=== PATIENT | female | born 1960 | race Caucasian/White ===

== ENCOUNTER 2023-08-13 04:59 | Emergency (ER) | payer MEDICARE, SELFPAY ==
[2023-08-13] VITALS (8 sets, daily range): BP systolic 118–133; BP diastolic 57–67; PULSE 82–91; RESP 18–21; TEMP 36.6; O2SAT 91–96; BMI 34.4
--- NOTE | 2023-08-13 05:07 | ED.ABDPAIN ---
HPI - Abdominal Pain <Angie Islas DO - Last Filed: 08/14/23 05:20> General Chief Complaint: Shortness of Breath/Dyspnea Stated Complaint: right side pain x1 week Time Seen by Provider: 08/13/23 05:06 Source: patient, RN notes reviewed and old records reviewed Mode of arrival: Ambulatory Limitations: no limitations History of Present Illness HPI narrative: This is a 63-year-old female with history of bipolar, hypertension who presents with complaint of right sided chest and upper abdominal pain for the past week. Patient states she saw her primary care was given meloxicam it has not been helpful. It is worse with cough, movement a deep inhalation. Patient states no fevers, no chills, no cold cough or congestive symptoms. Patient states pain is also little bit of the upper abdomen did id rubs or rashes back. Patient states no nausea or vomiting. No diaphoresis. She is normal bowel movements with no black or bloody stools. No dysuria, urgency or frequency. Patient has had a prior cholecystectomy as well as appendectomy. No prior cardiac interventions. She presents this morning as her symptoms have continued to worsen and not improve. She states pain is pretty much always present and has never resolved. Allergies to codeine, lithium and adhesive tape. Patient quit smoking 2 years ago, has 2 alcoholic shots several times weekly, no recreational or IV drugs. Related Data Previous Rx's Medication Instructions Recorded cefdinir 300 mg capsule 300 mg PO BID 5 days #10 caps 08/13/23 doxycycline hyclate 100 mg capsule 100 mg PO BID 5 days #10 caps 08/13/23 Allergies Allergy/AdvReac Type Severity Reaction Status Date / Time adhesive tape Allergy Intermediate Hives Verified 08/13/23 05:10 codeine Allergy Intermediate ITCHING Verified 08/13/23 05:09 lithium Allergy Intermediate Anxiety Verified 08/13/23 05:10 Review of Systems <Angie Islas DO - Last Filed: 08/14/23 05:20> Review of Systems ROS Unobtainable: All systems reviewed & are unremarkable except as noted in HPI and below Patient History <Angie Islas DO - Last Filed: 08/14/23 05:20> Social History Smoking Status: Former smoker Exam <Angie Islas DO - Last Filed: 08/14/23 05:20> Narrative Exam Narrative: GENERAL: Alert and oriented x three, obese female in mild distress. HEENT: Head normocephalic, atraumatic, EOMI, pupils reactive, face symmetric, moist mucous membranes NECK: Supple, full range of motion CARDIOVASCULAR: Regular rate and rhythm without murmurs, rubs or gallops. RESPIRATORY: Breath sounds equal bilaterally, no wheezes rales or rhonchi. No tachypnea, no accessory muscle use. No rash, erythema or other skin changes. ABDOMEN: Soft, moderate right upper quadrant tenderness. Normoactive bowel sounds all 4 quadrants. No guarding or rebound, rigidity, no mass : No CVA tenderness EXTREMITIES: Normal range of motion, no clubbing or edema. Neurovascularly intact NEUROLOGICAL: Cranial nerves II through XII grossly intact. Moving all extremities SKIN: Warm, dry, no petechiae, no rashes or lesions. Initial Vital Signs Initial Vital Signs: Vital Signs Temperature 97.9 F 08/13/23 05:11 Pulse Rate 90 08/13/23 05:11 Respiratory Rate 18 08/13/23 05:11 Blood Pressure 133/61 08/13/23 05:11 Pulse Oximetry 96 08/13/23 05:11 Oxygen Delivery Method Room Air 08/13/23 05:11 <Damian Schaffer MD - Last Filed: 08/13/23 07:52> Initial Vital Signs Initial Vital Signs: Vital Signs Temperature 97.9 F 08/13/23 05:11 Pulse Rate 90 08/13/23 05:11 Respiratory Rate 18 08/13/23 05:11 Blood Pressure 133/61 08/13/23 05:11 Pulse Oximetry 96 08/13/23 05:11 Oxygen Delivery Method Room Air 08/13/23 05:11 Course <Agnie Islas DO - Last Filed: 08/14/23 05:20> Orders Ordered: Discontinued Medications Cefdinir (Cefdinir 300 Mg Capsule) 300 mg PO NOW ONE Stop: 08/13/23 07:11 Last Admin: 08/13/23 07:24 Dose: 300 mg Documented By: GABBY Doxycycline Hyclate (Doxycycline Hyclate 100 Mg Tablet) 100 mg PO NOW ONE Stop: 08/13/23 07:11 Last Admin: 08/13/23 07:23 Dose: 100 mg Documented By: GABBY Ketorolac Tromethamine (Ketorolac 30 Mg/Ml Vial) 15 mg IV NOW ONE Stop: 08/13/23 05:23 Last Admin: 08/13/23 05:37 Dose: 15 mg Documented By: AB Vital Signs Vital signs: Vital Signs - 8 hr 08/13/23 05:11 08/13/23 05:33 08/13/23 06:00 Temperature 97.9 F Pulse Rate 90 89 86 Respiratory Rate 18 21 Blood Pressure 133/61 Pulse Oximetry 96 95 93 Oxygen Delivery Method Room Air Room Air 08/13/23 06:00 08/13/23 06:49 08/13/23 07:00 Temperature Pulse Rate 91 H 84 Respiratory Rate Blood Pressure 126/58 L Pulse Oximetry 91 95 Oxygen Delivery Method 08/13/23 07:30 08/13/23 07:43 08/13/23 07:43 Temperature Pulse Rate 85 82 Respiratory Rate Blood Pressure 118/57 L Pulse Oximetry 94 Oxygen Delivery Method 08/13/23 07:45 Temperature Pulse Rate Respiratory Rate Blood Pressure 118/67 Pulse Oximetry Oxygen Delivery Method <Damian Schaffer MD - Last Filed: 08/13/23 07:52> Orders Ordered: Discontinued Medications Cefdinir (Cefdinir 300 Mg Capsule) 300 mg PO NOW ONE Stop: 08/13/23 07:11 Last Admin: 08/13/23 07:24 Dose: 300 mg Documented By: GABBY Doxycycline Hyclate (Doxycycline Hyclate 100 Mg Tablet) 100 mg PO NOW ONE Stop: 08/13/23 07:11 Last Admin: 08/13/23 07:23 Dose: 100 mg Documented By: GABBY Ketorolac Tromethamine (Ketorolac 30 Mg/Ml Vial) 15 mg IV NOW ONE Stop: 08/13/23 05:23 Last Admin: 08/13/23 05:37 Dose: 15 mg Documented By: Vital Signs Vital signs: Vital Signs - 8 hr 08/13/23 05:11 08/13/23 05:33 08/13/23 06:00 Temperature 97.9 F Pulse Rate 90 89 86 Respiratory Rate 18 21 Blood Pressure 133/61 Pulse Oximetry 96 95 93 Oxygen Delivery Method Room Air Room Air 08/13/23 06:00 08/13/23 06:49 08/13/23 07:00 Temperature Pulse Rate 91 H 84 Respiratory Rate Blood Pressure 126/58 L Pulse Oximetry 91 95 Oxygen Delivery Method 08/13/23 07:30 08/13/23 07:43 08/13/23 07:43 Temperature Pulse Rate 85 82 Respiratory Rate Blood Pressure 118/57 L Pulse Oximetry 94 Oxygen Delivery Method 08/13/23 07:45 Temperature Pulse Rate Respiratory Rate Blood Pressure 118/67 Pulse Oximetry Oxygen Delivery Method MDM - Abdominal Pain <Angie Islas, - Last Filed: 08/14/23 05:20> Lab Data 08/13/23 05:25 08/13/23 05:25 Labs: Lab Results 08/13/23 08/13/23 Range/Units 05:10 05:25 WBC 10.4 (4.5-11.0) X10^3/uL RBC 3.96 L (4.0-5.2) X10^6/uL Hgb 11.7 L (12.0-16.0) g/dL Hct 34.8 L (36-46) % MCV 87.9 (80-100) fL MCH 29.4 (26-34) PG MCHC 33.5 (30-36) % RDW 14.4 (11.6-14.8) % Plt Count 369 (150-400) X10^3/uL Neut % (Auto) 64.8 (50-75) % Lymph % (Auto) 24.4 L (25-40) % [place] % (Auto) 7.8 (3-14) % Eos % (Auto) 2.5 (2-4) % Baso % (Auto) 0.5 (0-2) % Neut # (Auto) 6700 (1816-5383) /uL Lymph # (Auto) 2500 (6322-8455) /uL [place] # (Auto) 800 (0-900) /uL Eos # (Auto) 300 (0-450) /uL Baso # (Auto) 100 (0-100) /uL PT 11.3 (9.4-12.5) SECONDS INR 1.0 (0.9-1.3) APTT 42 H (25.1-36.5) SECONDS D-Dimer 2035 H (<500) ng/ml Sodium 134 L (137-145) mmol/L Potassium 4.5 (3.4-5.1) mmol/L Chloride 103 (98-107) mmol/L Carbon Dioxide 22 (22-32) mmol/L BUN 26 H (7-17) mg/dL Creatinine 0.76 (0.52-1.04) mg/dL Estimated GFR > 60 (>60) mL/min BUN/Creatinine Ratio 34.2 H (6-22) Glucose 216 H (80-110) mg/dL Calcium 9.5 (8.4-10.2) mg/dL Total Bilirubin 0.7 (0.2-1.3) mg/dL AST 58 H (14-36) IU/L ALT 47 H (<35) IU/L Alkaline Phosphatase 266 H (38-126) U/L Total Creatine Kinase 54 (30-135) U/L Troponin I < 0.012 (0.01-0.034) ng/mL Total Protein 9.0 H (6.3-8.2) g/dL Albumin 4.3 (3.5-5.0) g/dL Globulin 4.7 H (1.7-4.1) g/dL Albumin/Globulin Ratio 0.9 L (1.0-2.8) Lipase 120 (23-300) U/L Urine RBC 0-1/hpf (0-5/HPF) Urine WBC 30-100/hpf H (0-5/HPF) Ur Squamous Epith Cells 0-1 /hpf (0-5/HPF) Urine Bacteria Many (>30) H (None) Ur Culture Indicated? Specimen cultured Vol Urine Centrifuged 10ml (spun) Point of care testing: Urine Dip Bedside Urine Glucose 500 mg/dl Bedside Urine Bilirubin - Negative Bedside Urine Ketone - Negative Urine Specific Roberta 1.01 Bedside Urine Occult Blood - Negative Bedside Urine pH 6 Bedside Urine Protein - Negative Bedside Urine Urobilinogen - Negative Bedside Urine Nitrite - Negative Bedside Urine Leukocytes + 70 Esterase Imaging Data Chest x-ray: Radiologist's Impression: No acute change. ECG Data Attestation: I personally reviewed and interpreted this ECG as follows: Prior ECG tracings: not available for review Interpretation: NSR, rate of 87, pr 198, qrs 86, qtc 445. No acute ST elevation or depression. No priors for comparison. MDM Narrative Medical decision making narrative: 63-year-old female with complaint of right-sided chest and upper abdominal pain for the past week. Describes it as worse with movement, pleuritic with no infectious symptoms, there has only been right-sided. Does have some tenderness of the right upper quadrant but no longer has a gallbladder or appendix. Skin is normal without any signs such as shingles. Labs, white count of 10.4 hemoglobin 11.7, platelets of 369. INR is 1, D-dimer is 2035, sodium of 134 BUN 26 with otherwise normal electrolytes creatinine 0.76. Glucose of 216. Bilirubin 0.7. Lipase is negative with a total bili of 0.7 AST of 58 ALT of 47 alk-phos of 266. Negative troponin. Chest x-ray no acute change. EKG EKG shows possible old septal infarct but no acute ST elevation or depression. No priors for comparison. Vitals no overall appropriate no tachycardia, no hypotension, afebrile going to 95-96% room air. Reviewed findings with patient. Plan for CT angio. Patient is agreeable to the plan. Patient has right-sided pleuritic chest pain with the elevated D-dimer, negative troponin, no acute ST elevation depression on EKG. No estrogen, denies long distance travel, flights or sitting. No prior embolic history. CT angio was obtained. <Damian Schaffer MD - Last Filed: 08/13/23 07:52> Lab Data Labs: Lab Results 08/13/23 08/13/23 Range/Units 05:10 05:25 WBC 10.4 (4.5-11.0) X10^3/uL RBC 3.96 L (4.0-5.2) X10^6/uL Hgb 11.7 L (12.0-16.0) g/dL Hct 34.8 L (36-46) % MCV 87.9 (80-100) fL MCH 29.4 (26-34) PG MCHC 33.5 (30-36) % RDW 14.4 (11.6-14.8) % Plt Count 369 (150-400) X10^3/uL Neut % (Auto) 64.8 (50-75) % Lymph % (Auto) 24.4 L (25-40) % [place] % (Auto) 7.8 (3-14) % Eos % (Auto) 2.5 (2-4) % Baso % (Auto) 0.5 (0-2) % Neut # (Auto) 6700 (8056-6606) /uL Lymph # (Auto) 2500 (9296-7321) /uL [place] # (Auto) 800 (0-900) /uL Eos # (Auto) 300 (0-450) /uL Baso # (Auto) 100 (0-100) /uL PT 11.3 (9.4-12.5) SECONDS INR 1.0 (0.9-1.3) APTT 42 H (25.1-36.5) SECONDS D-Dimer 2035 H (<500) ng/ml Sodium 134 L (137-145) mmol/L Potassium 4.5 (3.4-5.1) mmol/L Chloride 103 (98-107) mmol/L Carbon Dioxide 22 (22-32) mmol/L BUN 26 H (7-17) mg/dL Creatinine 0.76 (0.52-1.04) mg/dL Estimated GFR > 60 (>60) mL/min BUN/Creatinine Ratio 34.2 H (6-22) Glucose 216 H (80-110) mg/dL Calcium 9.5 (8.4-10.2) mg/dL Total Bilirubin 0.7 (0.2-1.3) mg/dL AST 58 H (14-36) IU/L ALT 47 H (<35) IU/L Alkaline Phosphatase 266 H (38-126) U/L Total Creatine Kinase 54 (30-135) U/L Troponin I < 0.012 (0.01-0.034) ng/mL Total Protein 9.0 H (6.3-8.2) g/dL Albumin 4.3 (3.5-5.0) g/dL Globulin 4.7 H (1.7-4.1) g/dL Albumin/Globulin Ratio 0.9 L (1.0-2.8) Lipase 120 (23-300) U/L Urine RBC 0-1/hpf (0-5/HPF) Urine WBC 30-100/hpf H (0-5/HPF) Ur Squamous Epith Cells 0-1 /hpf (0-5/HPF) Urine Bacteria Many (>30) H (None) Ur Culture Indicated? Specimen cultured Vol Urine Centrifuged 10ml (spun) Point of care testing: Urine Dip Bedside Urine Glucose 500 mg/dl Bedside Urine Bilirubin - Negative Bedside Urine Ketone - Negative Urine Specific Roberta 1.01 Bedside Urine Occult Blood - Negative Bedside Urine pH 6 Bedside Urine Protein - Negative Bedside Urine Urobilinogen - Negative Bedside Urine Nitrite - Negative Bedside Urine Leukocytes + 70 Esterase MDM Narrative Medical decision making narrative: 63-year-old female with complaint of right-sided chest and upper abdominal pain for the past week. Describes it as worse with movement, pleuritic with no infectious symptoms, there has only been right-sided. Does have some tenderness of the right upper quadrant but no longer has a gallbladder or appendix. Skin is normal without any signs such as shingles. Labs, white count of 10.4 hemoglobin 11.7, platelets of 369. INR is 1, D-dimer is 2035, sodium of 134 BUN 26 with otherwise normal electrolytes creatinine 0.76. Glucose of 216. Bilirubin 0.7. Lipase is negative with a total bili of 0.7 AST of 58 ALT of 47 alk-phos of 266. Negative troponin. Chest x-ray no acute change. EKG EKG shows possible old septal infarct but no acute ST elevation or depression. No priors for comparison. Vitals no overall appropriate no tachycardia, no hypotension, afebrile going to 95-96% room air. Reviewed findings with patient. Plan for CT angio. Patient is agreeable to the plan. Patient has right-sided pleuritic chest pain with the elevated D-dimer, negative troponin, no acute ST elevation depression on EKG. No estrogen, denies long distance travel, flights or sitting. No prior embolic history. CT angio was obtained. ---- Sign out at 7AM. This is a 63yo F w/h/o HTN, DM, bipolar disorder who presented with 1 week of chest/upper abd pain, pleuritic, without SOB. She has had cholecystectomy. EKG non ischemic. CXR clear. Trop/labs reassuring but d-dimer elevated. CTA obtained and pending. VS reassuring. PLAN: follow up CT read, if reassuring then discharge with follow up. Low concern for ACS. CT results returned. While it is not clear there is pneumonia, given some potential concern for this I am initiating 5 day course of dual antibiotics with cefdinir 300 mg p.o. b.i.d. and doxycycline 100 mg p.o. b.i.d.. In addition, I am giving copy of CT results with very important incidental findings for patient to follow up on. Note CT findings likely explain elevated D-dimer. I reassessed patient who states she is feeling well. She has reassuring repeat exam and vital signs. We discussed dual antibiotic coverage, with prescriptions given. She has no other new concerns and understands plan. We fully discussed the CT results and strict importance of follow up on this. Repeat exam and vital signs reassuring. Questions answered. Plan reviewed. Patient discharged in stable condition. Discharge Plan Departure Patient Disposition: Home Clinical Impression: Shortness of Breath Instructions: DI for Cough -- Adult Activity Restrictions/Additional Instructions: It was a pleasure taking care of you today. It is important to fully read and understand the below. Please ask us if you have any questions. We think the most likely cause of your symptoms is pneumonia. However, as discussed, there are extremely important findings on your CT scan that need very close follow-up. Please see your primary doctor within 3-5 days to be reassessed. Please take cefdinir and doxycycline as prescribed. You also have mild anemia, elevated liver enzymes. You have bacteria in your urine, which would also be treated likely with the antibiotics I am giving you, though we do not typically treat without clear urinary symptoms. No tests or assessments are perfect, and your condition could record changer assembler time. If your symptoms change or worsen, it is very important you immediately seek medical care. If you have any new or worsening pain, lightheadedness or passing out, shortness of breath, fever, vomiting, confusion, numbness, weakness, or anything else that concerns you, please immediately seek medical care. If you have been prescribed any medications: please read the drug package inserts on how to properly use the medication and any potential side effects. If you had labs (blood tests) or imaging (CT scan or x-rays) done during your visit: please follow up on the results of these with your primary care doctor, as discussed. In addition, please know the results we received today may be preliminary. Our usual practice is to follow up on tests within a few days of a patient's discharge from the Emergency Department and notify you of any changes. These may lead to changes to your treatment plan. However, the best way to obtain and interpret these test results is through your Primary Care Provider. If you need to update your contact information, please stop by the front line supervisor and alert the Registration personnel before you leave the Emergency Department. Thank you for the opportunity to participate in your healthcare. We are always here and happy to see you in the future. Prescriptions: New cefdinir 300 mg capsule 300 mg PO BID 5 Days Qty: 10 0RF doxycycline hyclate 100 mg capsule 100 mg PO BID 5 Days Qty: 10 0RF Stand Alone Forms: Patient Portal/API
--- NOTE | 2023-08-13 05:22 | DI.RAD.S_ITS ---
PROCEDURE: XR CHEST 1V INDICATIONS: chest pain TECHNIQUE: One view of the chest was acquired. COMPARISON: None. FINDINGS: Surgical changes and devices: None. Lungs and pleura: Minimal basilar atelectasis and or infiltrate Mediastinum: Mediastinal contours appear normal. Heart size is normal. Bones and chest wall: No suspicious bony lesions. Overlying soft tissues appear unremarkable. IMPRESSION: Minimal bibasilar scattered atelectasis and or infiltrate Approved by: Wallace Hyman M.D. on 08/13/2023 at 8:35
[2023-08-13 05:35] LABS: Add Manual Diff / Slide Review NO; Basophils Absolute Auto 100 /uL (0-100); Basophils Percent Auto 0.5 % (0-2); Eosinophils Absolute Auto 300 /uL (0-450); Eosinophils Percent Auto 2.5 % (2-4); Hematocrit 34.8 % (36-46); Hemoglobin 11.7 g/dL (12.0-16.0); Lymphocytes Absolute Auto 2500 /uL (1100-4500); Lymphocytes Percent Auto 24.4 % (25-40); Mean Corpuscular HGB Conc 33.5 % (30-36); Mean Corpuscular Hemoglobin 29.4 PG (26-34); Mean Corpuscular Volume 87.9 fL (80-100); Monocytes Absolute Auto 800 /uL (0-900); Monocytes Percent Auto 7.8 % (3-14); Neutrophils Absolute Auto 6700 /uL (1500-7000); Neutrophils Percent Auto 64.8 % (50-75); Platelet Count 369 X10^3/uL (150-400); Red Blood Cell Count 3.96 X10^6/uL (4.0-5.2); Red Cell Distribution Width 14.4 % (11.6-14.8); White Blood Cell Count 10.4 X10^3/uL (4.5-11.0)
[2023-08-13] MEDS: KETOROLAC 30 MG/ML VIAL 15 MG IV (05:37)
[2023-08-13 05:44] LABS: Prothrombin Time 11.3 SECONDS (9.4-12.5)
[2023-08-13 05:45] LABS: D Dimer 2035 ng/ml (<500)
[2023-08-13 05:46] LABS: Bacteria Urine Many (>30); Culture Indicated Urine Specimen Cultured; RBC Urine 0-1/HPF (0-5/HPF); Squamous Epithelial Cell Urine 0-1 /HPF (0-5/HPF); Urine Volume 10mL (spun); WBC Urine 30-100/HPF (0-5/HPF)
[2023-08-13 05:46] LABS: PTT Partial Thromboplastin Tim 42 SECONDS (25.1-36.5)
[2023-08-13 05:47] LABS: Alanine Aminotransferase 47 IU/L (<35); Albumin 4.3 g/dL (3.5-5.0); Albumin Globulin Ratio 0.9 (1.0-2.8); Alkaline Phosphatase 266 U/L (38-126); Aspartate Aminotransferase 58 IU/L (14-36); BUN Creatinine Ratio 34.2 (6-22); Bilirubin Total 0.7 mg/dL (0.2-1.3); Blood Urea Nitrogen 26 mg/dL (7-17); Calcium 9.5 mg/dL (8.4-10.2); Carbon Dioxide 22 mmol/L (22-32); Chloride 103 mmol/L (98-107); Creatine Kinase 54 U/L (30-135); Estimated Glomerular Filt Rate > 60 mL/min (>60); Globulin 4.7 g/dL (1.7-4.1); Glucose 216 mg/dL (80-110); HEMOLYSIS < 15 (0-50); Lipase 120 U/L (23-300); Potassium 4.5 mmol/L (3.4-5.1); Sodium 134 mmol/L (137-145)
[2023-08-13 05:59] LABS: Troponin I < 0.012 ng/mL (0.01-0.034)
--- NOTE | 2023-08-13 06:01 | DI.CT.S_ITS ---
PROCEDURE: CT ANGIO CHEST PE PROTOCOL INDICATIONS: right chest pain/abd pain, pleuritic, +dimer TECHNIQUE: After the administration of intravenous contrast, 2 mm thick sections acquired from the pulmonary apices to the posterior costophrenic angles. MIP reformats of the arterial vasculature were utilized. For radiation dose reduction, the following was used: automated exposure control, adjustment of mA and/or kV according to patient size. COMPARISON: None. FINDINGS: Image quality: Study is limited by bolus timing Cardiovascular and Mediastinum: Heart size is normal. No evidence of thoracic aortic aneurysm. Pulmonary vasculature is unremarkable. No hiatal hernia. Thyroid gland unremarkable. Lungs and Pleural Spaces: Small right pleural effusion rounded and atelectasis and or consolidation in the costophrenic sulcus measuring 3 cm. Right middle lobe scarring present. Left lung and pleural space clear Lymph Nodes: No mediastinal, hilar or axillary adenopathy. Scattered mediastinal nodes are nonenlarged. Prominent right hilar node measures 2.0 x 1.4 cm Musculoskeletal: No evidence of rib fracture. Thoracic spine unremarkable. Chest wall and sternum intact. No lytic or blastic lesions. Upper abdomen: Gastrohepatic bulky adenopathy measures up to 2.5 x 3.1 cm. IMPRESSION: 1. No evidence of central pulmonary embolism, aortic dissection or aneurysm. 2. Bulky gastrohepatic adenopathy. Advise follow-up nonemergent CT abdomen and pelvis for further evaluation. 3. Right-sided pleural effusion, rounded consolidation or atelectasis, and right hilar adenopathy. Follow-up to resolution. Note: This final report is concordant with the preliminary after-hours interpretation provided by [employer] Approved by: Wallace Hyman M.D. on 08/13/2023 at 9:07
[2023-08-13] MEDS: DOXYCYCLINE HYCLATE 100 MG TABLET PO (07:23)
[2023-08-13] MEDS: CEFDINIR 300 MG CAPSULE PO (07:24)
== END 2023-08-13 07:46 | disposition home or self-care (01) ==
PROVIDERS: Emergency Medicine; Emergency Provider Emergency Medicine
DX: R06.02 Shortness of breath (principal); R07.9 Chest pain, unspecified
CPT/HCPCS: 36415; 71045; 71275; 80053; 81003; 81015; 82550; 83690; 84484; 85025; 85379; 85610; 85730; 87077; 87086; 87186; 93005; 96374; 99284; J1885; Q9967